=== PATIENT | female | born 1980 | race Caucasian/White ===

== ENCOUNTER → 2016-11-17 | Outpatient (CLI) | payer BC ==
[~2016-11-17] MED LIST: DOXY25TA7; PRENTAB26 PO
[2016-11-17 19:15] LABS: GTGD 50 Grams
[2016-11-19 13:26] LABS: AFP CONCENTRATION 37.5 NG/ML; AFP MULTIPLE OF MEDIAN 1.31; AFPTS INSULIN DEP DIABETIC? NO; AFPTS MATERNAL WT 182 LBS; ALPHA-FETOPROTEIN RACE CAUCASIAN=W; HISTORY OF NTD NO; REPEAT SAMPLE? NO
== END | disposition home or self-care (01) ==
LOC: C.LAB1850 16:29
PROVIDERS: ATTEND Obstetrics & Gynecology
DX: O09.512 Supervision of elderly primigravida, second trimester (principal)

== ENCOUNTER → 2017-02-14 | Outpatient (CLI) | payer BC ==
[2017-02-14 18:44] LABS: URINE APPEARANCE CLEAR (CLEAR); URINE BILIRUBIN NEG (NEG); URINE COLOR YELLOW; URINE NITRITE NEG (NEG); URINE PH 6.5 (4.5-7.5); URINE SPECIFIC GRAVITY 1.004 (1.000-1.030); UROBILINOGEN NEG (NEG)
[2017-02-14 18:50] LABS: MANUAL MICROSCOPIC REQUIRED? NO; REVIEW REQ? NO
== END | disposition home or self-care (01) ==
LOC: C.LABSPEC 17:51
PROVIDERS: ATTEND Obstetrics & Gynecology
DX: O09.513 Supervision of elderly primigravida, third trimester (principal)

== ENCOUNTER → 2017-02-14 | Outpatient (CLI) | payer BC ==
[2017-02-14 17:41] LABS: HEMATOCRIT 35.9 % (37-47)
[2017-02-14 19:35] LABS: GTGD 50 Grams
== END | disposition home or self-care (01) ==
LOC: C.LAB1850 16:49
PROVIDERS: ATTEND Obstetrics & Gynecology
DX: O09.513 Supervision of elderly primigravida, third trimester (principal)

== ENCOUNTER 2017-03-21 15:52 | Outpatient (CLI) | payer BC ==
[~2017-03-21] VITALS: Ht 165.1 cm; Wt 102.1 kg
[2017-03-21 17:21] LABS: BASO % 0.1 %; BASO ABS # 0.01 K/uL (0-0.2); COMPLETE YES; EOS % 0.7 %; IG% 0.4 %; LYMPH % 18.8 %; LYMPH ABS # 2.29 K/uL (1.2-3.4); MEAN CELL VOLUME 93.2 fL (80-100); MEAN CORPUSCULAR HEMOGLOBIN 33.4 pg (25-34); MEAN CORPUSCULAR HGB CONC 35.9 g/dl (32-36); MEAN PLATELET VOLUME 11.2 fL (7.4-10.4); MONO % 6.4 %; NEUT % 73.6 %; PLATELET COUNT 178 K/uL (130-400); WHITE BLOOD COUNT 12.19 K/uL (4.8-10.8)
[2017-03-21 17:51] LABS: ALT/SGPT 19 U/L (12-78); AST/SGOT 13 U/L (15-37); BLOOD UREA NITROGEN 8 mg/dl (7-18); BUN/CREATININE RATIO 13.9 (10-20); CALCIUM 9.2 mg/dl (8.5-10.1); CARBON DIOXIDE 23 mmol/L (21-32); CHLORIDE 108 mmol/L (98-107); CREATININE 0.61 mg/dl (0.60-1.20); GLUCOSE 72 mg/dl (70-99); POTASSIUM 3.7 mmol/L (3.5-5.1); SODIUM 139 mmol/L (136-145)
[2017-03-21 17:54] LABS: ALB/GLOB RATIO 0.7 (0.9-2); ALKALINE PHOSPHATASE 112 U/L (45-117)
[2017-03-21 19:09] VITALS: Ht 165.1 cm; Wt 102.1 kg
[2017-03-21] MEDS ORDERED: DOXY25TA7 (19:09)
[2017-03-21] MEDS ORDERED: PRENTAB26 PO (19:09)
[2017-03-21] MEDS ORDERED: MAGNESIUM SULFATE 4GM / WTR 4 GM BAG IV ONE (19:15)
[2017-03-21] MEDS ORDERED: MAGNESIUM SULFATE 4GM / WTR 100ML IV ONE (19:30)
[2017-03-21] MEDS ORDERED: BETAMETH SOD PHOS/ACETATE IA 6 MG/ML IM ONE (19:30)
[2017-03-21] MEDS ORDERED: MAGNESIUM SULFATE 40GM / WTR 1000 ML IV SCH (20:00)
== END 2017-03-21 21:00 | disposition short-term general hospital (02) ==
LOC: C.LD 15:52 → C.OPB 15:52
PROVIDERS: ATTEND Obstetrics & Gynecology
DX: O99.89 Other specified diseases and conditions complicating pregnancy, childbirth and the puerperium (principal); R03.0 Elevated blood-pressure reading, without diagnosis of hypertension; Z3A.33 33 weeks gestation of pregnancy

== ENCOUNTER → 2017-11-10 | Outpatient (CLI) | payer OTHER | END | disposition home or self-care (01) | LOC: C.LABSPEC 10:39 | PROVIDERS: ATTEND Urology | DX: R31.0 Gross hematuria (principal) ==

== ENCOUNTER → 2017-12-16 | Outpatient (CLI) | payer OTHER ==
[~2017-12-16] MED LIST changes: -DOXY25TA7; +DOXY25TA8; +OPTIRAY 320 IV PRN
--- NOTE | 2017-12-16 09:35 | DIAGNOSTIC IMAGING REPORT ---
CT ABD/PELVIS COMBO CLINICAL HISTORY: R31.0 Gross hematuria NPR ref# [id number] COMPARISON STUDY: None. TECHNIQUE: Unenhanced images were obtained through the abdomen and pelvis. The patient was injected with 50 cc Optiray 320. After 5 minute delay, the patient is rescanned in a dynamic helical fashion during the additional administration of 70 cc of Optiray 320. A dose lowering technique was utilized adhering to the principles of ALARA. CT DOSE: 1670.10 mGycm FINDINGS: Lower chest: The heart is normal in size and configuration, without pericardial effusion. The lung bases and pleural spaces are clear. Liver: There is a very subtle 1 cm hypodensity within the right hepatic lobe. This cannot be further characterized. The portal and hepatic veins appear patent. There is no ductal dilatation. Gallbladder: Unremarkable. Spleen: Normal in size and attenuation. Pancreas: Unremarkable. Adrenal glands: Unremarkable. Kidneys: No renal, ureteral, or bladder calculi are visualized. There is a 7 mm upper pole right renal cortical cyst. There is a 7 mm upper pole left renal cortical cyst. There is a to small to characterize 5 mm hypodensity within the lower pole the right kidney which exceeds water attenuation. No collecting system or ureteral lesions are visualized. Bowel: There are no transition zones indicate bowel obstruction. The appendix appears normal. There is no acute diverticulitis. Peritoneum: There is no intraperitoneal free air or abdominal ascites. There is a small fat-containing umbilical hernia. Vasculature: The abdominal aorta is normal in course and caliber. Adenopathy: None. Pelvic viscera: There is a 7 cm left ovarian cyst. No mural nodules or septations are visualized on CT scanning. Skeletal structures: No destructive osseous lesions are seen. IMPRESSION: 1. No renal, ureteral, or bladder calculi identified 2. Bilateral 7 mm upper pole renal cortical cysts. 3. Too small to characterize 5 mm hypodensity within the lower pole the right kidney which exceeds water attenuation 4. No uroepithelial lesions identified 5. 7 cm left ovarian cystic lesion. No mural nodules or septations are visualized on CT scanning. Electronically signed by: Ramez Diego M.D. 12/16/2017 9:34 AM Dictated Date/Time: 12/16/2017 9:24 AM
[2017-12-16 10:27] LABS: ALBUMIN 3.8 gm/dl (3.4-5.0); ALT/SGPT 19 U/L (12-78); AST/SGOT 9 U/L (15-37); BLOOD UREA NITROGEN 14 mg/dl (7-18); CALCIUM 8.9 mg/dl (8.5-10.1); CARBON DIOXIDE 27 mmol/L (21-32); CREATININE 0.92 mg/dl (0.60-1.20); GLUCOSE 96 mg/dl (70-99); POTASSIUM 4.3 mmol/L (3.5-5.1); SODIUM 133 mmol/L (136-145)
[2017-12-16 10:30] LABS: ALKALINE PHOSPHATASE 72 U/L (45-117); TOTAL PROTEIN 7.5 gm/dl (6.4-8.2)
== END | disposition home or self-care (01) ==
LOC: C.CTS 08:42
PROVIDERS: ATTEND Urology
DX: R31.0 Gross hematuria (principal)